=== PATIENT | male | born 1930 | race Hispanic/Latino ===

== ENCOUNTER 2019-02-20 13:57 | Outpatient (CLI) | payer MEDICARE ==
--- NOTE | 2019-02-20 14:48 | Mammography Report ---
BONE DENSITY STUDY: Sacral insufficiency fracture. DEFINITIONS: BMD = Bone Mineral Density T-score = BMD related to mean peak bone mass of young adult (mean expressed in Standard Deviation) Z-score = Age matched BMD expressed in SD World Health Organization (WHO) Diagnostic Criteria Normal T-score > -1 SD Osteopenia T-score between -1 and -2.4 SD Osteoporosis T-score -2.5 SD or below FINDINGS: The weighted average BMD of lumbar spine L1 and L4 is 0.961 with a T-score of -1.1. The L2 and L3 bodies demonstrate compression sclerosis. The weighted average BMD of the left hip is 0.977 with a T-score of -0.4. The femoral neck BMD is 0.709 with a T. value score of -1.6. IMPRESSION: The patient's average T-score is diagnostic for osteopenia and average relative risk for fracture. NOTE: BMD is not the only risk factor for fracture; also consider factors such as the patient's age, risk of falling, previous osteoporotic fracture, family history of osteoporotic fractures, current smoker, and low body weight. Arauz's triangle is a region of interest in femur, predominantly of trabecular bone. It is not a true anatomic site, and ISCD does not recommend its use clinically.
== END 2019-02-20 13:58 | disposition home or self-care (01) ==
LOC: SPVWC 13:57
PROVIDERS: ATTEND Family Medicine
DX: M85.88 Other specified disorders of bone density and structure, other site (principal)
CPT/HCPCS: 77080

== ENCOUNTER 2021-09-08 11:27 | Outpatient (CLI) | payer MEDICARE ==
--- NOTE | 2021-09-08 14:52 | Mammography Report ---
DEXA BONE DENSITY SCAN INDICATION / CLINICAL INFORMATION: SACRAL INSUFFICIENCY FX/OSTEOPENIA OF MULTIPLE SITES. 89 years Male COMPARISON: 02/20/2019 LUMBAR SPINE, L1-L4: - Bone mineral density (BMD) = 1.129 g/cm2. - T-score = 0.3 Change (%) since most recent prior (if available): None available. LEFT HIP, NECK : - Bone mineral density (BMD) = 0.750 g/cm2. - T-score = -1.3 Change (%) since most recent prior (if available): 0.9% increase IMPRESSION: 1. WHO Classification: Osteopenia. Fracture Risk: Increased. Note: 10-Year Fracture Risk (FRAX) not reported. This DEXA unit lacks FRAX functionality. BMD Reporting Guidelines (ISCD, 2015) BMD Reporting in Postmenopausal Women and in Men Age 50 and Older - T-scores are preferred. - The WHO densitometric classification is applicable. BMD Reporting in Females Prior to Menopause and in Males Younger Than Age 50 - Z-scores, not T-scores, are preferred. This is particularly important in children. - A Z-score of -2.0 or lower is defined as below the expected range for age, and a Z-score above -2.0 is within the expected range for age. - Osteoporosis cannot be diagnosed in men under age 50 on the basis of BMD alone. - The WHO diagnostic criteria may be applied to women in the menopausal transition. http://www.iscd.org/official-positions/1868-xken-atyxclhm-positions-adult/ Signer Name: Audi Graham MD Signed: 09/08/2021 2:48 PM Workstation Name: [id number]
== END 2021-09-08 11:28 | disposition home or self-care (01) ==
LOC: SPVWC 11:27
PROVIDERS: ATTEND Family Medicine
DX: M85.89 Other specified disorders of bone density and structure, multiple sites (principal)
CPT/HCPCS: 77080